=== PATIENT | female | born 1990 | race Asian ===

== ENCOUNTER 2022-02-18 09:51 | Outpatient (CLI) | payer BC ==
[2022-02-18 10:40] LABS: MEAN CORPUSCULAR HEMOGLOBIN 29.6 uug (24.7-32.8); MEAN CORPUSCULAR VOLUME 86.4 fL (75.5-95.3); PLATELET COUNT (AUTO) 268 K/uL (179-408)
[2022-02-21 04:06] LABS: RUBELLA AB, IgG 3.16 index (Immune >0.99)
[2022-02-22 03:07] LABS: HEPATITIS B SURFACE AG Negative (Negative)
== END 2022-02-18 23:59 | disposition home or self-care (01) ==
LOC: LAB 09:51
PROVIDERS: ATTEND Obstetrics & Gynecology
DX: Z31.430 Encounter of female for testing for genetic disease carrier status for procreative management (principal); N91.0 Primary amenorrhea; Z33.1 Pregnant state, incidental; Z20.2 Contact with and (suspected) exposure to infections with a predominantly sexual mode of transmission; Q99.2 Fragile X chromosome
CPT/HCPCS: 36415; 84443; 85025; 86480; 86592; 86762; 86803; 86850; 86900; 86901; 87340; 87806